=== PATIENT | male | born 1980 | race Caucasian/White ===

== ENCOUNTER → 2018-12-30 | Outpatient (CLI) | payer OTHER ==
--- NOTE | 2018-12-30 11:50 | KCIC ---
EXAM: Abdomen acute complete. HISTORY: Pain after endoscopy. COMPARISON: None. FINDINGS: A frontal view the chest and frontal upright and supine views of the abdomen are obtained. There is no infiltrate, pleural effusion or pneumothorax. The heart is normal in size. No distended loop of bowel seen. There is no transition point to suggest obstruction. There is no evidence of intraperitoneal free air. IMPRESSION: 1. No acute pulmonary finding. 2. Nonobstructive bowel gas pattern. Electronically signed by: Chantelle Mane MD (12/30/2018 11:47 AM) [facility] [id number]
== END | disposition home or self-care (01) ==
LOC: KCIC 11:18
PROVIDERS: ATTEND Internal Medicine Gastroenterology
DX: R10.13 Epigastric pain (principal)
CPT/HCPCS: 74022